=== PATIENT | male | born 1975 | race Caucasian/White ===

== ENCOUNTER → 2017-01-15 | Outpatient (CLI) | payer BC, OTHER ==
[~2017-01-15] MED LIST: ACET-1138 PO; ASPEC81 PO; CLB200 PO; NYSTCRE11 TOP; RXC5 PO; SNK PO; TRAM-10 PO
--- NOTE | 2017-01-15 10:48 | DIAGNOSTIC IMAGING REPORT ---
L INJ MAJOR JNT SHLDR,HIP,KNEE FLUOROSCOPY TIME: 21 seconds. Single image was obtained. HISTORY: Left hip pain.. PROCEDURE: After obtaining written informed consent, the patient was placed supine on the fluoroscopy table. A suitable site for needle insertion was marked using fluoroscopic guidance. The left hip was prepped and draped in the usual sterile fashion. 1% lidocaine was used for skin, subcutaneous and deep soft tissue anesthesia. Under intermittent fluoroscopic guidance, a 22 gauge x 3.5 inch spinal needle was inserted into the left hip joint. 2 cc of Optiray 300 was injected to confirm the intra-articular location. This is followed by a mixture of 5cc of 0.5% bupivacaine and 2 cc of betamethasone at the request of the referring physician. The needle was then removed. There were no apparent complications. IMPRESSION: Fluoroscopic-guided left hip steroid injection without immediate complication. The above report was generated using voice recognition software. It may contain grammatical, syntax or spelling errors. Electronically signed by: Elan Mederos M.D. 01/15/2017 10:46 AM Dictated Date/Time: 01/15/2017 10:45 AM
== END | disposition home or self-care (01) ==
LOC: C.RADBC 09:28
PROVIDERS: ATTEND Orthopaedic Surgery
DX: M16.12 Unilateral primary osteoarthritis, left hip (principal)